=== PATIENT | male | born 1965 | race Asian ===

== ENCOUNTER 2021-04-03 08:00 | Outpatient (CLI) | payer MEDICAID, OTHER ==
--- NOTE | 2021-04-03 16:39 | XRAY Report ---
PROCEDURE: Cervical Spine 2 View INDICATIONS: CERVICAL RADICULOPATHY TECHNIQUE: 3 view(s) of the cervical spine were acquired. COMPARISON: None. FINDINGS: Bones: No fractures or dislocations to the C7-T1 level. Straightening of normal cervical lordosis i s seen. Grade 1 anterolisthesis of C4 on C5 and C5 on C6 is noted. Degenerative endplate changes are noted at C4-5 through C6-7 levels. The lateral masses of C1 appear intact on the odontoid view. No s uspicious bony lesions. Soft tissues: No prevertebral soft tissue swelling. 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 No acute fracture or dislocati on. Grade 1 anterolisthesis at C4-5 and C5-6 levels. Reviewed by: Kennedy Ford MD on 04/03/2021 4:37 PM PST Approved by: Kennedy Ford MD on 04/03/2021 4:37 PM PST Station ID: [id number]
== END 2021-04-03 23:59 | disposition home or self-care (01) ==
LOC: DI.S 08:00
PROVIDERS: ATTEND Registered Nurse
DX: M43.12 Spondylolisthesis, cervical region (principal); M50.021 Cervical disc disorder at C4-C5 level with myelopathy

== ENCOUNTER 2022-12-28 14:01 | Outpatient (CLI) | payer BC ==
[2022-12-28 20:30] LABS: ALBUMIN 4.5 g/dL (3.2-5.5); ALKALINE PHOSPHATASE 54 IU/L (42-121); ALT ALANINE AMINOTRANSFERASE 14 IU/L (10-60); AST ASPARTATE AMINOTRANSFERASE 13 IU/L (10-42); BILIRUBIN,TOTAL 0.8 mg/dL (0.2-1.0); BUN - BLOOD UREA NITROGEN 19 mg/dL (6-20); CALCIUM 9.2 mg/dL (8.5-10.3); CARBON DIOXIDE - CO2 27 mmol/L (21-32); CHLORIDE 106 mmol/L (101-111); CHOL/HDL RATIO 3.1 (<5.0); CHOLESTEROL 208 mg/dL; CREATININE 0.9 mg/dL (0.6-1.3); GFR - MDRD 88 (>89); GLUCOSE 92 mg/dL (74-104); HDL CHOLESTEROL 68 mg/dL; LDL CHOLESTEROL,CALCULATED 111 mg/dL; LDL/HDL RATIO 1.6 (<3.6); SODIUM 139 mmol/L (135-145); TOTAL PROTEIN 6.7 g/dL (6.4-8.9); TRIGLYCERIDES 147 mg/dL (48-352); VLDL CHOLESTEROL 29 mg/dL
[2022-12-28 21:25] LABS: ESTIMATED AVERAGE GLUCOSE 108 mg/dL (70-100); HEMOGLOBIN A1c% 5.4 % (4.27-6.07)
[2022-12-31 00:07] LABS: HCV AB Non Reactive (Non Reactive)
== END 2022-12-28 14:02 | disposition home or self-care (01) ==
LOC: LAB.S 14:01
PROVIDERS: ATTEND Registered Nurse
DX: Z00.00 Encounter for general adult medical examination without abnormal findings (principal); Z12.5 Encounter for screening for malignant neoplasm of prostate; Z13.6 Encounter for screening for cardiovascular disorders; Z11.59 Encounter for screening for other viral diseases; Z13.1 Encounter for screening for diabetes mellitus
CPT/HCPCS: 36415; 80053; 80061; 83036; 83721; 84153; 86803